=== PATIENT | female | born 1995 | race Two or more races ===

== ENCOUNTER 2017-01-30 18:41 | Emergency (ER) | payer MEDICAID ==
--- NOTE | 2017-01-30 18:53 | ER Document Report ---
ED Medical Screen (RME) - General Stated Complaint: RIGHT ARM NUMBNESS Mode of Arrival: Ambulatory Information source: Patient Notes: c/o right hand swelling, finger coldness and tingling to her right arm that started after she woke up this morning. She denies sleeping on that side. She also endorses bug bites to her right arm that are itching. Able to move her hand but pain is worse with making a fist. Did take tylenol which didn't provide relief. I have greeted and performed a rapid initial assessment of this patient. A comprehensive ED assessment and evaluation of the patient, analysis of test results and completion of the medical decision making process will be conducted by additional ED providers. Physical Exam - Vital signs Vitals: Temp Pulse Resp BP Pulse Ox 97.4 F 77 14 141/84 H 100 01/30/17 18:45 01/30/17 18:45 01/30/17 18:45 01/30/17 18:45 01/30/17 18:45 - Notes Notes: Extremity: Right hand swelling with several erythematous papules noted consistent with bug bites. Course - Vital Signs Vital signs: Temp Pulse Resp BP Pulse Ox 97.4 F 77 14 141/84 H 100 01/30/17 18:45 01/30/17 18:45 01/30/17 18:45 01/30/17 18:45 01/30/17 18:45
[2017-01-30] MEDS ORDERED: DIPHENHYDRAMINE HCL 25 MG CAPSULE PO ONE (20:51)
--- NOTE | 2017-01-30 20:51 | ER Document Report ---
HPI - HPI Patient complains to provider of: insect bites Onset: Yesterday Severity: Mild Pain Level: 2 Context: Patient presents to the emergency department with multiple insect bites to her right arm. Patient reports she just here from [place] to visit her father. Patient reports right hand swelling from the sites and feels like her hand goes numb.. No erythema or discharge. Denies f/n/v/d. Denies allergies. Associated Symptoms: None Exacerbated by: Denies Relieved by: Denies Similar symptoms previously: No Recently seen / treated by doctor: No - REPRODUCTIVE LMP: 2016 - DERM Skin Color: Normal Past Medical History - General Information source: Patient Last Menstrual Period: 01/27/17 - Social History Smoking Status: Never Smoker Chew tobacco use (# tins/day): No Frequency of alcohol use: None Drug Abuse: None Lives with: Family Family History: None Patient has suicidal ideation: No Patient has homicidal ideation: No - Medical History Medical History: Negative Renal/ Medical History: Denies: Hx Peritoneal Dialysis Surgical Hx: Negative Vertical Provider Document - CONSTITUTIONAL Agree With Documented VS: Yes Exam Limitations: No Limitations General Appearance: WD/WN, No Apparent Distress - INFECTION CONTROL TRAVEL OUTSIDE OF THE [place] IN LAST 30 DAYS: No - HEENT HEENT: Atraumatic, Normocephalic - NECK Neck: Normal Inspection, Supple. negative: Lymphadenopathy-Left, Lymphadenopathy-Right - RESPIRATORY Respiratory: Breath Sounds Normal, No Respiratory Distress O2 Sat by Pulse Oximetry: 100 - CARDIOVASCULAR Cardiovascular: Regular Rate - MUSCULOSKELETAL/EXTREMETIES Musculoskeletal/Extremeties: MAEW, FROM, Tender - slightly swollen, warm, no erythema/no pustule/no induration, brisk cap refill, good radial pulse, strong access analyst. - NEURO Level of Consciousness: Awake, Alert, Appropriate Motor/Sensory: No Motor Deficit - DERM Integumentary: Warm, Dry Adult Front & Back Diagram: 1 - multiple insect bites, dorsal hand slight swelling, warm Course - Re-evaluation Re-evalutation: 01/31/17 07:23 right hand dorsal swollen, feels warm, no erythema or pustule. will treat with keflex, pt instructed on benadryl, ice packs, monitor for increased swelling/ signs of infection. she verbalized understanding. - Vital Signs Vital signs: Temp Pulse Resp BP Pulse Ox 97.4 F 77 14 141/84 H 100 01/30/17 18:45 01/30/17 18:45 01/30/17 18:45 01/30/17 18:45 01/30/17 18:45 Discharge - Discharge Clinical Impression: Elevated blood pressure reading Insect bites Qualifiers: Encounter type: initial encounter Qualified Code(s): W57.XXXA - Bitten or stung by nonvenomous insect and other nonvenomous arthropods, initial encounter Condition: Stable Disposition: HOME, SELF-CARE Instructions: Insect Bites ([facility]), Cephalexin ([facility]), Use of Diphenhydramine Additional Instructions: *You have been treated for insect bites *Take medication as prescribed *Take benadryl as indicated *Monitor the site for signs of increasing infection such as increasing pain, redness, swelling, warmth *Follow up with a primary care provider upon returning to [place] *Return to ED for signs of infection, worsening condition, changes, needs Prescriptions: Cephalexin Monohydrate [Keflex 250 Mg Capsule] 250 mg PO QID #20 capsule Forms: Elevated Blood Pressure
[2017-01-30 21:32] VITALS: BP 121/79
== END 2017-01-30 21:32 | disposition home or self-care (01) ==
LOC: ER 18:41
DX: S60.561A Insect bite (nonvenomous) of right hand, initial encounter (principal); W57.XXXA Bitten or stung by nonvenomous insect and other nonvenomous arthropods, initial encounter; R03.0 Elevated blood-pressure reading, without diagnosis of hypertension
CPT/HCPCS: 99283